=== PATIENT | female | born 1980 | race African-American/Black ===

== ENCOUNTER 2016-12-12 12:59 | Emergency (ER) | payer BC ==
[2016-12-12] MEDS ORDERED: Ondansetron INJ* 2 MG/ML VIAL IV ONE (13:56)
[2016-12-12] MEDS ORDERED: NS 0.9% 1000 ML* 1,000 ML IV ONE (13:56)
[2016-12-12] MEDS ORDERED: Morphine INJ* 4 MG/ML 1 ML SYRINGE IV ONE (13:58)
--- NOTE | 2016-12-12 14:37 | RAD ---
INDICATION: Left pelvic pain COMPARISON: None TECHNIQUE: Longitudinal and transverse transabdominal scans of the pelvis were obtained. FINDINGS: Uterus: The uterus is normal in size. There are no focal masses. The uterus measures 10.9 x 5.9 x 6.0 cm. Endometrial thickness: The endometrial thickness is measured at 1.1 cm. . Free fluid: There is no significant free fluid . Ovaries: The ovaries are normal in size. The right ovary measures 2.6 x 1.6 x 3.4 cm. The left ovary measures 3.6 x 2.3 x 3.1 cm. . Doppler interrogation demonstrates flow to each ovary. Other: None IMPRESSION: NORMAL PELVIC SONOGRAM.
[2016-12-12 15:09] LABS: Hematocrit 37 % (35-47); Hemoglobin 11.8 g/dl (12.0-16.0); Mean Corpuscular HGB Conc 32 g/dl (31-36); Mean Corpuscular Hemoglobin 26 pg (27-31); Mean Corpuscular Volume 80 fL (80-97); Mean Platelet Volume 9 um3 (7.4-10.4); Red Blood Count 4.63 10^6/ul (4.0-5.4); Red Cell Distribution Width 17 % (10.5-15); White Blood Count 8.3 10^3/ul (3.5-10.8)
[2016-12-12 15:27] LABS: ALT 9 U/L (7-52); AST 15 U/L (13-39); Albumin 4.2 g/dL (3.2-5.2); Alkaline Phosphatase 66 U/L (34-104); Amylase 34 U/L (29-103); Anion Gap 4 mmol/L (2-11); BUN/Creatinine Ratio 15.3 (8-20); Blood Urea Nitrogen 11 mg/dL (6-24); C Reactive Protein 6.34 mg/L (< 5.00); CO2 Carbon Dioxide 29 mmol/L (22-32); Calcium 9.1 mg/dL (8.6-10.3); Chloride 101 mmol/L (101-111); EGFR African American 117.2 (>60); EGFR Non-African American 91.1 (>60); Globulin 3.3 g/dL (2-4); Glucose 84 mg/dL (70-100); Lipase < 10 U/L (11.0-82.0); Potassium 3.9 mmol/L (3.5-5.0); Sodium 134 mmol/L (133-145); Total Protein 7.5 g/dL (6.4-8.9)
[2016-12-12] MEDS ORDERED: Iohexol 300* (CONTRAST) 10 ML SDV IV ONE (16:20)
--- NOTE | 2016-12-12 17:00 | RAD ---
INDICATION: Left lower quadrant pain COMPARISON: Pelvic sonogram same date TECHNIQUE: Axial source images were obtained from the hemidiaphragms to the symphysis pubis . Imaging was performed following the intravenous administration of 143 mL Omnipaque 300. There is no no oral contrast opacification Coronal and sagittal reconstructed images were acquired. Lung bases: The lung bases are clear. There is a well-circumscribed, oval, 1.4 cm left breast nodule. Suggest scheduled, nonemergent follow-up left breast sonography Liver: The liver is normal in size. There are no masses. There is no ductal dilatation. Gallbladder: There are no calcified gallstones. There is no evidence of wall thickening or pericholecystic fluid. Spleen: The spleen is normal in size. There are no masses. Pancreas: There is no focal pancreatic mass or ductal dilatation. Adrenal glands: There is no evidence of adrenal mass. Kidneys: The kidneys are normal in size and position. There are prompt nephrograms and there is prompt excretion bilaterally. There are no renal parenchymal masses. There is no evidence of nephrolithiasis. Adenopathy: There is no evidence of adenopathy by size criteria. Fluid collections: There are no free or localized fluid collections. Vessels:There are no significant atherosclerotic changes involving the aorta. There is no focal aneurysm. The iliac vessels are normal in caliber. The IVC appears normal. GI tract: There is mild limited evaluation without oral contrast. There are no acute CT bowel findings. There is no obstruction. The stomach and small bowel appear normal. The lower GI tract is normal. The cecum, ileocecal valve, and terminal ileum appear normal. The appendix is visualized and appear normal. Pelvic organs: The uterus and adnexa appear normal Bladder: There are no bladder masses. Abdominal and pelvic soft tissues: The extraperitoneal abdominal and pelvic soft tissues appear normal.. Osseous structures: There are no acute osseous findings. Other: None IMPRESSION: NO ACUTE CT FINDINGS. NO MASS OR INFLAMMATORY CHANGES. 1.4 CM LEFT BREAST NODULE (SEE ABOVE).
--- NOTE | 2016-12-12 17:53 | ED ---
I, Oh,Eliezer, scribed for Nicolás Duarte MD on 12/12/16 at 1359 . Abdominal Pain/Female - HPI Summary HPI Summary: This 36 y/o female presents to ED for intermittent LLQ abd pain since this morning. Pt also reports diaphoresis, dizziness, nausea, and soft stool. Negative vomiting. Pt took 800 mg ibuprofen around 1130 AM without much relief. She is current menstruating since 3 days ago. PMHx includes anxiety and depression that are controlled with Wellbutrin and Zoloft. Pt is current smoker and nondrinker. FHx is positive for HTN and DM. - History of Current Complaint Chief Complaint: EDAbdPain Stated Complaint: ABD CRAMPS Time Seen by Provider: 12/12/16 13:51 Hx Obtained From: Patient ?: No Onset/Duration: Sudden Onset, Still Present Timing: Minutes Pain Intensity: 8 Pain Scale Used: 0-10 Numeric Location: Discrete At: LLQ Radiates: No Character: Cramping Aggravating Factor(s): Nothing Alleviating Factor(s): Spontaneous Resolution Associated Signs and Symptoms: Positive: Vaginal Bleeding - currently menstruating, Nausea, Diarrhea - soft stool. Negative: Fever, Vomiting Allergies/Adverse Reactions: Allergies Allergy/AdvReac Type Severity Reaction Status Date / Time Sulfamethoxazole Allergy Severe Hives/Diff. Verified 12/12/16 13:07 w/Trimethoprim Breathing/I [From Bactrim] tching PMH/Surg Hx/FS Hx/Imm Hx Psychiatric History: Reports: Hx Anxiety, Hx Depression Infectious Disease History: No Infectious Disease History: Denies: Traveled Outside the [place] in Last 30 Days - Family History Known Family History: Positive: Hypertension, Diabetes - Social History Alcohol Use: None Hx Substance Use: No Substance Use Type: Reports: None Hx Tobacco Use: Yes Smoking Status (MU): Current Every Day Smoker Review of Systems Positive: Skin Diaphoresis. Negative: Fever Positive: Abdominal Pain - LLQ abd cramp, Diarrhea - soft stool, Nausea. Negative: Vomiting Positive: other - Currently menstruating Neurological: Other - positive for dizziness All Other Systems Reviewed And Are Negative: Yes Physical Exam Triage Information Reviewed: Yes Vital Signs On Initial Exam: Initial Vitals Temp Pulse Resp BP Pulse Ox 97.9 F 85 20 149/97 100 12/12/16 13:03 12/12/16 13:03 12/12/16 13:03 12/12/16 13:03 12/12/16 13:03 Vital Signs Reviewed: Yes Diagnostics - Vital Signs Vital Signs Temp Pulse Resp BP Pulse Ox 12/12/16 13:03 97.9 F 85 20 149/97 100 - Laboratory Lab Results: Lab Results 12/12/16 12/12/16 12/12/16 Range/Units 15:00 15:00 15:00 WBC 8.3 (3.5-10.8) 10^3/ul RBC 4.63 (4.0-5.4) 10^6/ul Hgb 11.8 L (12.0-16.0) g/dl Hct 37 (35-47) % MCV 80 (80-97) fL MCH 26 L (27-31) pg MCHC 32 (31-36) g/dl RDW 17 H (10.5-15) % Plt Count 200 (150-450) 10^3/ul MPV 9 (7.4-10.4) um3 Neut % (Auto) 83.6 H (38-83) % Lymph % (Auto) 11.3 L (25-47) % [place] % (Auto) 3.9 (1-9) % Eos % (Auto) 0.3 (0-6) % Baso % (Auto) 0.9 (0-2) % Absolute Neuts (auto) 6.9 (1.5-7.7) 10^3/ul Absolute Lymphs (auto) 0.9 L (1.0-4.8) 10^3/ul Absolute Monos (auto) 0.3 (0-0.8) 10^3/ul Absolute Eos (auto) 0 (0-0.6) 10^3/ul Absolute Basos (auto) 0.1 (0-0.2) 10^3/ul Absolute Nucleated RBC 0.01 10^3/ul Nucleated RBC % 0.1 Sodium 134 (133-145) mmol/L Potassium 3.9 (3.5-5.0) mmol/L Chloride 101 (101-111) mmol/L Carbon Dioxide 29 (22-32) mmol/L Anion Gap 4 (2-11) mmol/L BUN 11 (6-24) mg/dL Creatinine 0.72 (0.51-0.95) mg/dL Est GFR ( Amer) 117.2 (>60) Est GFR (Non-Af Amer) 91.1 (>60) BUN/Creatinine Ratio 15.3 (8-20) Glucose 84 (70-100) mg/dL Lactic Acid 0.8 (0.5-2.0) mmol/L Calcium 9.1 (8.6-10.3) mg/dL Total Bilirubin 0.30 (0.2-1.0) mg/dL AST 15 (13-39) U/L ALT 9 (7-52) U/L Alkaline Phosphatase 66 (34-104) U/L C-Reactive Protein 6.34 H (< 5.00) mg/L Total Protein 7.5 (6.4-8.9) g/dL Albumin 4.2 (3.2-5.2) g/dL Globulin 3.3 (2-4) g/dL Albumin/Globulin Ratio 1.3 (1-3) Amylase 34 (29-103) U/L Lipase < 10 L (11.0-82.0) U/L Beta HCG, Quant < 0.60 mIU/mL Result Diagrams: 12/12/16 15:00 12/12/16 15:00 Lab Statement: Any lab studies that have been ordered have been reviewed, and results considered in the medical decision making process. - CT Ab/P CT Interpretation: No Acute Changes - NO ACUTE CT FINDINGS. NO MASS OR INFLAMMATORY CHANGES. There is a well-circumscribed, oval, 1.4 cm left breast nodule. Suggest scheduled, nonemergent follow-up left breast sonography CT Interpretation Completed By: Radiologist - Additional Comments Diagnostic Additional Comments: US Pelvis -- Normal Pelvis sonogram Re-Evaluation - Re-Evaluation First Eval Re-Evaluation Time: 17:47 Comment: MD in room to update pt on imaging results and discuss plan of care. Abdominal Pain Fem Course/Dx - Course Course Of Treatment: This 36 y/o female presents to ED for intermittent LLQ abd pain since this morning. Pt also reports diaphoresis, dizziness, nausea, and soft stool. Negative vomiting. Pt took 4 ibuprofen [employer] without much relief. She is currently menstruating since 3 days ago. PMHx includes anxiety and depression that are controlled with Wellbutrin and Zoloft. Pt is current smoker and nondrinker. FHx is positive for HTN and DM. Blood test are found within normal limits except for Hb 11.8. Pelvic U/S: Normal pelvic sonogram. Abdominal and pelvic CT: No acute findings. No masses or inflammation. Breast nodule. She was advise to f/u with pmd for the breast nodule. . In the ED course she was given Morphine and Zofran for the pain. After medications she is feeling better. She has no pain. I offered a pelvic exam and it was declined. She reports she is feeling better and she has the menstrual cycle therefore she declines the exam. I discussed all the findings and test results with the patient. Patient was instructed to return to the emergency room immediately if any of the symptoms return or worsens. They were explained the possibility of an early abdominal pathology which was not detected at this time despite the physical exam and testing. They understand and agree. Abdominal exam before discharge: Soft, NT. No signs of distention. BS present. No rebound no guarding, and no masses palpated. Patient is alert and oriented and hemodynamically stable. Patient is to follow up with primary care physician in the next 2 to 3 days. Patient agree and understands. - Diagnoses Differential Diagnosis: Positive: Bowel Obstruction, Constipation, Diverticulitis, Ovarian Cyst Provider Diagnoses: Menstrual cramp, Abdominal pain Discharge - Discharge Plan Condition: Stable Disposition: HOME Patient Education Materials: Menstruation (ED), Abdominal Pain (ED) Referrals: Steffi Starr NP [Primary Care Provider] - 2 Days The documentation as recorded by the Osito sampson Soohyun accurately reflects the service I personally performed and the decisions made by me, Nicolás Duarte MD.
== END 2016-12-12 18:06 | disposition home or self-care (01) ==
LOC: ED 12:59
DX: R10.32 Left lower quadrant pain (principal); N93.9 Abnormal uterine and vaginal bleeding, unspecified; R19.7 Diarrhea, unspecified; R11.0 Nausea; R42 Dizziness and giddiness; F17.210 Nicotine dependence, cigarettes, uncomplicated
CPT/HCPCS: 36415; 74177; 76856; 80053; 82150; 83605; 83690; 84702; 85025; 86140; 96361; 96374; 96375; 99282; J2270; J2405; Q9967